=== PATIENT | male | born 1980 | race Caucasian/White ===

== ENCOUNTER 2020-06-08 20:34 | Emergency (ER) | payer OTHER | END 2020-06-08 22:25 | disposition home or self-care (01) | LOC: ER1 20:34 | DX: S61.217A Laceration without foreign body of left little finger without damage to nail, initial encounter (principal); F17.210 Nicotine dependence, cigarettes, uncomplicated; I10 Essential (primary) hypertension; W26.0XXA Contact with knife, initial encounter; Y92.009 Unspecified place in unspecified non-institutional (private) residence as the place of occurrence of the external cause; Z23 Encounter for immunization | CPT/HCPCS: 12001; 73140; 90471; 90715; 99283 ==